=== PATIENT | male | born 1985 | race Caucasian/White ===

== ENCOUNTER 2020-06-03 21:15 | Emergency (ER) | payer OTHER ==
[2020-06-03 22:46] LABS: EOS % 0.1 % (0.0-4.0); HEMOGLOBIN 14.3 g/dL (13.5-18.0); LYMPH# 2.5 (1.50-4.00); MEAN CELL VOLUME 83 fl (78-100); MEAN CORPUSCULAR HEMOGLOBIN 29 pg (27-31); MEAN CORPUSCULAR HGB CONC 35 g/dL (33-37); MEAN PLATELET VOLUME 9.4 fl (7.4-10.4); PLATELET COUNT 436 K/mm3 (130-400); RED BLOOD COUNT 4.96 M/mm3 (4.20-5.60); RED CELL DISTRIBUTION WIDTH 12.6 % (11.5-14.5); WHITE BLOOD COUNT 17.4 K/mm3 (4.8-10.8)
[2020-06-03 22:50] LABS: NEU # 13.9 (1.40-6.50)
[2020-06-03 22:57] LABS: ALBUMIN 4.1 g/dL (3.5-5.0); POTASSIUM 3.8 mmol/L (3.5-5.1)
[2020-06-03 22:58] LABS: CALCIUM 9.2 mg/dL (8.3-10.5)
[2020-06-03 22:59] LABS: TOTAL PROTEIN 8.4 g/dL (6.4-8.3)
[2020-06-03 23:43] LABS: URINE APPEARANCE CLEAR; URINE BILIRUBIN NEGATIVE (NEGATIVE); URINE BLOOD 50 ery/uL (NEGATIVE); URINE COLOR DARK YELLOW; URINE KETONE 2+ (NEGATIVE); URINE NITRATE NEGATIVE (NEGATIVE); URINE PROTEIN(semi-quant) TRACE mg/dL (NEGATIVE); URINE UROBILINOGEN NORMAL (NORMAL)
[2020-06-03 23:44] LABS: URINE LEUKOCYTE ESTERASE NEGATIVE (NEGATIVE); URINE MUCUS PRESENT (NOT PRESENT)
[2020-06-04] MEDS ORDERED: HUMULIN R U-100 U/ML SQ (04:22)
[2020-06-04 09:18] LABS: EOS # 0.1 (0.04-0.40); EOS % 0.4 % (0.0-4.0); HEMOGLOBIN 13.4 g/dL (13.5-18.0); MEAN CELL VOLUME 83 fl (78-100); MEAN CORPUSCULAR HEMOGLOBIN 29 pg (27-31); MEAN CORPUSCULAR HGB CONC 35 g/dL (33-37); PLATELET COUNT 401 K/mm3 (130-400); RED BLOOD COUNT 4.57 M/mm3 (4.20-5.60); RED CELL DISTRIBUTION WIDTH 12.6 % (11.5-14.5); WHITE BLOOD COUNT 15.4 K/mm3 (4.8-10.8)
[2020-06-04 09:20] LABS: NEU # 11.2 (1.40-6.50)
[2020-06-04 09:22] LABS: POTASSIUM 3.9 mmol/L (3.5-5.1)
[2020-06-04 09:23] LABS: CALCIUM 8.5 mg/dL (8.3-10.5)
[2020-06-04] MEDS ORDERED: CLONIDINE HYDR0.2 MG PO (12:28)
[2020-06-04] MEDS ORDERED: METOCLOPRAMIDE10 M5 PO (12:28)
[2020-06-04] MEDS ORDERED: BENTYL 20MG20 MG/TAB PO (12:28)
[2020-06-04 12:51] VITALS: BP 127/68
== END 2020-06-04 13:19 ==
LOC: ED 21:15
PROVIDERS: Family Medicine
DX: F11.23 Opioid dependence with withdrawal (principal); E86.9 Volume depletion, unspecified; E11.9 Type 2 diabetes mellitus without complications; E27.8 Other specified disorders of adrenal gland; Z79.4 Long term (current) use of insulin
CPT/HCPCS: J1815; J2270; J2765; J7030; Q9967